=== PATIENT | male | born 1995 | race Caucasian/White ===

== ENCOUNTER 2021-11-05 09:01 | Emergency (ER) | payer OTHER, SELFPAY ==
[2021-11-05 09:19] VITALS: BP 136/69; PULSE 69; RESP 16; TEMP 36.8; O2SAT 100
--- NOTE | 2021-11-05 09:24 | ED.URI ---
HPI - URI/Sore Throat General Chief Complaint: Upper Respiratory Infection Stated Complaint: Sore throat Time Seen by Provider: 11/05/21 09:24 Source: patient and family History of Present Illness HPI Narrative: patient presents with sore throat. patient denies any other symptoms. no uri symptoms no concern for covid. pateint has no trouble swallowing and no drooling. MD elicited complaint: sore throat Able to tolerate fluids by mouth: Yes Exacerbating factors: swallowing Relieving factors: nothing Related Data Allergies Allergy/AdvReac Type Severity Reaction Status Date / Time No Known Allergies Allergy Verified 11/05/21 09:28 Review of Systems Review of Systems: CONSTITUTIONAL: Denies fever, chills, or sweats. EYES: Denies visual changes, redness, or discharge. ENT: Denies rhinorrhea, congestion, sore throat, or otalgia. CARDIOVASCULAR: Denies chest pain, palpitations, or edema. RESPIRATORY: Denies cough or dyspnea. GASTROINTESTINAL: Denies abdominal pain, nausea, vomiting, or diarrhea. GENITOURINARY: Denies dysuria or hematuria. SKIN: Denies rash or itching. MUSCULOSKELETAL: Denies back pain, joint pain, or myalgia. NEUROLOGIC: Denies headache, numbness, or weakness. PSYCHIATRIC: Denies anxiety or depression. PMFSH Comments At time of signature, agree with nursing past medical, surgical, social and family history. There is no relevant family history pertinent to the presenting complaint Exam Narrative: GENERAL: Well-appearing, well-nourished, and in no acute distress. HEAD: Normocephalic, atraumatic. EYES: PERRLA and EOMI. ENT: Nares clear, no rhinorrhea or epistaxis. Mucous membranes moist. Mild pharyngeal erythema no exudate moderate amount of postnasal drainage no drooling no trismus can open mouth fully NECK: Supple. CHEST: Clear to auscultation. No respiratory distress. HEART: Regular rate and rhythm. No murmur heard. Normal peripheral pulses. ABDOMEN: Soft, nontender, nondistended, normal active bowel sounds. EXTREMITIES: Normal range of motion. No edema. SKIN: Warm, dry, no rash. NEURO: No focal deficits. Alert and oriented x3. John Coma Scale Eye Opening: Spontaneous 4 [place] Coma Scale Motor: Obeys Commands 6 John Coma Scale Verbal: Oriented 5 John Coma Scale Total 15 Course Course Level of Care: Express Care Visit MDM - URI/Sore Throat Differential Diagnosis Differential diagnosis: Likely upper respiratory infection, croup, otitis media, sinusitis, viral infection, bronchitis, influenza and pharyngitis Critical Care Time Critical Care Time Critical Care Time: No Discharge Plan Discharge Clinical Impression: Pharyngitis, Upper respiratory infection, COVID-19 Patient Disposition: Home, Self-Care Condition: Stable Instructions: Antibiotic Form Additional Instructions: The following recommendations have been made by the CDC and local Health Departments, regarding COVID-19: Symptoms are most consistent with a virus, antibiotics do not treat the virus, but time and supportive care will aid in helping you to feel better sooner. If your rapid COVID test in office was negative, please stay isolated until your final test returns, if applicable. There is a chance that your covid test can return positive. If you had an [facility] PCR test- these results are final. Your results should be sent to you via text message ore-mail. You can request a doctor's note from this chat bot. Since COVID-19 is so widespread, it can present as any symptoms, no symptoms, minimal symptoms. SINCE YOU WERE TESTED, WE HAVE TO ASSUME YOU COULD BE POSITIVE. AND WHILE WAITING FOR RESULTS YOU COULD SPREAD TO OTHERS. If possible, please try isolate to 1 bedroom, 1 bathroom in the house and have food or meals brought to you. You cannot go to the grocery store, pharmacy, other public locations. Family members most also quarantine until the final results are back. When you have symptoms of COVID 19 and are told to
== END 2021-11-05 10:10 | disposition home or self-care (01) ==
PROVIDERS: Emergency Provider Nurse Practitioner Family
DX: U07.1 COVID-19 (principal)
CPT/HCPCS: 87081; 87426; 87880; 99213; C9803; G0463

== ENCOUNTER 2025-08-22 07:29 | Outpatient (CLI) | payer OTHER, SELFPAY ==
--- NOTE | ~2025-08-22 | MMUS_ITS ---
EXAMINATION: MM diagnostic cem RT w ivanna, US breast RT complete HISTORY: Breast hypertrophy TECHNIQUE: Additional 3-D tomosynthesis images of the breasts were performed and synthetic 2-D images were generated. CAD analysis was submitted and interpreted. High resolution complete right breast ultrasound was performed. COMPARISON: None BREAST PARENCHYMAL COMPOSITION: Not dense: There are scattered areas of fibroglandular density. FINDINGS: MAMMOGRAPHIC FINDINGS: There is bilateral asymmetric gynecomastia with increased fibroglandular content in the right breast compared to the left. No suspicious masses, calcifications or architectural distortion are identified in either breast to suggest malignancy. ULTRASOUND: Complete US of all 4 quadrants of the right breast/s and retroareolar region was reviewed. Normal heterogeneous echotexture without focal solid or cystic mass. IMPRESSION: 1. No evidence for malignancy in either breast. 2. Recommend follow-up clinical management for gynecomastia. BI-RADS Category 1: Negative Reviewed, dictated and finalized at location C. IMPRESSION: 1. No evidence for malignancy in either breast. 2. Recommend follow-up clinical management for gynecomastia. BI-RADS Category 1: Negative
== END 2025-08-22 07:30 | disposition home or self-care (01) ==
LOC: MICIMG 07:30
PROVIDERS: PCP Student in an Organized Health Care Education/Training Program; Visit Provider Student in an Organized Health Care Education/Training Program
DX: N62 Hypertrophy of breast (principal); N63.10 Unspecified lump in the right breast, unspecified quadrant
CPT/HCPCS: 76641; 77061; 77065; G0279